=== PATIENT | female | born 1955 | race Caucasian/White ===

== ENCOUNTER 2022-04-26 13:38 | Outpatient (CLI) | payer MEDICARE, SELFPAY ==
--- NOTE | ~2022-04-26 | MR_ITS ---
EXAMINATION: MR lumbar spine wo con DATE: 04/26/2022 14:35 INDICATION: Chronic low back pain. Bilateral leg pain and numbness. TECHNIQUE: Magnetic resonance imaging (MRI) of the lumbar spine was performed without intravenous con trast. Sequences included sagittal T2-weighted FSE, sagittal T2-weighted FS FSE, sagittal T1-weighted FSE, and axial T2-weighted FSE. COMPARISON: Lumbar spine radiographs 07/01/2012 FINDINGS: There is 23 degrees dextroscoliosis of lumbar spine. There is mild chronic anterior wedging of T11 and T12 vertebral bodies. There is 3 mm retrolisthesis of L1 on L2, L2 on L3, and L3 on L4. T here is moderately decreased disc height at T12-L1. There is severely decreased disc height from L1-L 2 through L5-S1 with endplate remodeling. The distal spinal cord signal intensity is normal. The conu s medullaris is at L1-L2. The following disc levels are specifically discussed: L1-L2: The disc is bulging. There is moderate right and severe left facet joint osteoarthritis. There is mild right and moderate left neural foraminal stenosis. There is mild central canal stenosis. L2-L3: The disc is bulging. There is severe right and moderate left facet joint osteoarthritis. There is mild right and moderate left neural foraminal stenosis. There is mild central canal stenosis. L3-L4: The disc is bulging and has an annular fissure. There is severe bilateral facet joint osteoart hritis. There is mild right and moderate left neural foraminal stenosis. There is mild central canal stenosis. L4-L5: The disc is bulging and has an annular fissure. There is severe bilateral facet joint osteoart hritis. There is moderate bilateral neural foraminal stenosis. There is mild central canal stenosis. L5-S1: The disc is bulging and has an annular fissure. There is severe bilateral facet joint osteoart hritis. There is moderate right and mild left neural foraminal stenosis. There is mild central canal stenosis. IMPRESSION: 1. Severe lumbar spondylosis. 2. Lumbar dextroscoliosis. Reviewed, dictated and finalized at location A.
== END 2022-04-26 13:39 | disposition home or self-care (01) ==
PROVIDERS: PCP Internal Medicine; Visit Provider Nurse Practitioner
DX: M47.896 Other spondylosis, lumbar region (principal)
CPT/HCPCS: 72148

== ENCOUNTER 2022-06-05 09:41 | Outpatient (CLI) | payer MEDICARE, SELFPAY ==
--- NOTE | 2022-06-05 11:00 | NEURO_ITS ---
Impression: # Complains of low back and leg pain. # Normal motor and sensory nerve conduction study including F-waves. # Normal needle/EMG exam. # Clinical correlation recommended. Nerve Conduction Studies Anti Sensory Summary Table Stim Site NR Peak (ms) P-T Amp (?V) Site1 Site2 Delta-P (ms) Dist (cm) Jayson (m/s) Left Sup Fibular Anti Sensory (Ant Lat Mall) 14 cm 3.2 5.2 14 cm Ant Lat Mall 3.2 16.0 50 Right Sup Fibular Anti Sensory (Ant Lat Mall) 14 cm 3.2 7.3 14 cm Ant Lat Mall 3.2 16.0 50 Left Sural Anti Sensory (Lat Mall) Calf 3.3 11.3 Calf Lat Mall 3.3 16.0 48 Right Sural Anti Sensory (Lat Mall) Calf 3.8 8.4 Calf Lat Mall 3.8 16.0 42 Motor Summary Table Stim Site NR Onset (ms) O-P Amp (mV) Site1 Site2 Delta-0 (ms) Dist (cm) Jayson (m/s) Left Peroneal Motor (Vastus Med) Ankle 4.0 1.8 Popit Ankle 6.5 29.0 45 Popit 10.5 1.8 Right Peroneal Motor (Vastus Med) Ankle 3.8 2.8 Popit Ankle 7.8 37.0 47 Popit 11.6 2.5 Left Tibial Motor (Abd Duncan Brev) Ankle 4.5 3.1 Knee Ankle 8.5 42.0 49 Knee 13.0 1.8 Right Tibial Motor (Abd Duncan Brev) Ankle 4.2 2.6 Knee Ankle 8.7 41.0 47 Knee 12.9 2.4 F Wave Studies NR F-Lat (ms) L-R F-Lat (ms) Left Peroneal (Mrkrs) (EDB) 53.40 0.28 Right Peroneal (Mrkrs) (EDB) 53.13 0.28 Left Tibial (Mrkrs) (Abd Hallucis) 54.57 0.12 Right Tibial (Mrkrs) (Abd Hallucis) 54.70 0.12 EMG Side Muscle Nerve Root Ins Act Fibs Amp Dur Recrt Comment Right AntTibialis Dp Br Fibular L4-5 Nml Nml Nml Nml Nml Right Gastroc Tibial S1-2 Nml Nml Nml Nml Nml Right Fibularis Long Sup Br Fibular L5-S1 Nml Nml Nml Nml Nml Right Flex Dig Long Tibial L5-S2 Nml Nml Nml Nml Nml Right Ext Dig Brev Dp Br Fibular L5, S1 Nml Nml Nml Nml Nml Left AntTibialis Dp Br Fibular L4-5 Nml Nml Nml Nml Nml Left Gastroc Tibial S1-2 Nml Nml Nml Nml Nml Left Fibularis Long Sup Br Fibular L5-S1 Nml Nml Nml Nml Nml Left Flex Dig Long Tibial L5-S2 Nml Nml Nml Nml Nml Left Ext Dig Brev Dp Br Fibular L5, S1 Nml Nml Nml Nml Nml MTDD
== END 2022-06-05 09:42 | disposition home or self-care (01) ==
LOC: ANHNEURO 09:44
PROVIDERS: PCP Internal Medicine; Visit Provider Nurse Practitioner
DX: M54.50 Low back pain, unspecified (principal)
CPT/HCPCS: 95886; 95910

== ENCOUNTER 2022-06-08 07:46 | Outpatient (CLI) | payer MEDICARE, SELFPAY ==
--- NOTE | ~2022-06-08 | MM_ITS ---
EXAMINATION: MM screening [facility] BI w ryan HISTORY: Screening mammogram TECHNIQUE: Craniocaudal and mediolateral oblique 3-D tomosynthesis images were obtained and synthetic 2-D images were generated. CAD analysis was submitted and interpreted. COMPARISON: 10/02/2018, 12/11/2011 BREAST PARENCHYMAL COMPOSITION: There are scattered areas of fibroglandular density. FINDINGS: There is no suspicious mass, calcification, or architectural distortion to suggest malignan cy in either breast. There has been no suspicious interval change. IMPRESSION: 1. No mammographic evidence of malignancy. 2. Recommend routine screening mammography in one year. BI-RADS Category 1: Negative Reviewed, dictated and finalized at location A.
== END 2022-06-08 07:47 | disposition home or self-care (01) ==
LOC: ANHIMG 07:48
PROVIDERS: PCP Internal Medicine; Visit Provider Nurse Practitioner
DX: Z12.31 Encounter for screening mammogram for malignant neoplasm of breast (principal)
CPT/HCPCS: 77063; 77067

== ENCOUNTER 2023-08-30 08:37 | Outpatient (CLI) | payer MEDICARE, SELFPAY ==
[2023-08-30 09:28] LABS: Hematocrit 46.6 % (37.0-47.0); Hemoglobin 15.1 g/dL (12.0-15.0); Mean Corpuscular HGB Conc 32.4 g/dl (32-36); Mean Corpuscular Hemoglobin 31.1 pg (26-34); Mean Corpuscular Volume 96.1 fl (80-100); Mean Platelet Volume 11.2 fl (7.4-10.4); Platelet Count Result 252 k/mm3 (150-375); Red Blood Count 4.85 M/mm3 (4.2-5.4); Red Cell Distribution Width 12.4 % (11.5-14.5); White Blood Count 9.7 K/mm3 (4.5-10.0)
[2023-08-30 09:40] LABS: Alanine Aminotransferase 42 U/L (6-35); Albumin Level 4.7 g/dL (3.5-5.1); Alkaline Phosphatase 80 U/L (38-126); Anion Gap 8 mmol/L (8-16); Aspartate Amino Transferase 32 U/L (14-36); Bilirubin,Total 0.6 mg/dL (0.2-1.3); Blood Urea Nitrogen 27 mg/dL (7-17); Calcium 9.5 mg/dL (8.4-10.2); Carbon Dioxide 27 mmol/L (22-30); Chloride 105 mmol/L (98-107); Cholesterol 170 mg/dL (0-200); Estimated Glomerular Filt Rate > 60; Glucose 95 mg/dL (65-110); HDL Direct 57 mg/dL; Potassium 4.1 mmol/L (3.4-5.0); Sodium 140 mmol/L (137-145); Triglycerides 145 mg/dL (<150)
[2023-08-30 09:49] LABS: Hemoglobin A1C 6.1 % (<5.7)
[2023-08-30 09:50] LABS: LDL Cholesterol Direct 81 mg/dL
== END 2023-08-30 08:38 | disposition home or self-care (01) ==
PROVIDERS: PCP Internal Medicine; Visit Provider Nurse Practitioner
DX: I10 Essential (primary) hypertension (principal); R73.03 Prediabetes; E78.5 Hyperlipidemia, unspecified; Z13.29 Encounter for screening for other suspected endocrine disorder
CPT/HCPCS: 36415; 80053; 80061; 83036; 84443; 85027

== ENCOUNTER 2024-07-02 07:00 | Outpatient (NON) | payer MEDICARE, SELFPAY | END 2024-07-02 07:01 | disposition home or self-care (01) | LOC: ANHLAB 07-03 10:31 | PROVIDERS: PCP Internal Medicine; Visit Provider Internal Medicine Gastroenterology | DX: Z12.11 Encounter for screening for malignant neoplasm of colon (principal); Z80.0 Family history of malignant neoplasm of digestive organs | CPT/HCPCS: 88305 ==

== ENCOUNTER 2024-07-02 08:30 | Day surgery (SDC) | payer MEDICARE, SELFPAY ==
[2024-05-27 11:52] VITALS: BMI 36.3
--- NOTE | 2024-07-02 06:57 | WPDANESEPPF ---
Anes - Initial Pre Proc Eval Procedure: Operation Date: 07/02/24 10:45 Proposed Procedures p Diagnostic Colonoscopy - Shakir Lopez MD Date/Time: 07/02/24 06:57 Surgeon: Shakir Lopez MD Pre Op Diagnosis: Family History of Colon polyps Patient Data Age: 68 Gender: F Height: 1.68 m Weight: 91 kg Allergies Allergy/AdvReac Type Severity Reaction Status Date / Time povidone-iodine Allergy Mild Rash Verified 07/02/24 09:42 Penicillins Allergy Unknown Anaphylaxis Verified 07/02/24 09:42 povidone Allergy Unknown Rash Verified 07/02/24 09:42 lidocaine Allergy Blister Verified 07/02/24 09:42 tetracycline Allergy Rash Verified 07/02/24 09:42 Home Medications Medication Instructions Recorded Confirmed Type bumetanide 2 mg tablet 2 mg PO BID PRN intermittent 05/21/24 07/02/24 Rx swelling #90 tabs celecoxib 200 mg capsule 200 mg PO BID #180 caps 05/21/24 07/02/24 Rx lansoprazole 30 mg capsule,delayed See Rx Instructions .Route 05/21/24 07/02/24 Rx release .COMPLEX #80 caps losartan 50 mg tablet See Rx Instructions .Route 05/21/24 07/02/24 Rx .COMPLEX #100 tabs potassium chloride 20 mEq 20 meq PO DAILY #90 tabs 05/21/24 07/02/24 Rx tablet,extended release tramadol 50 mg tablet 50 mg PO Q8H PRN pain #90 tabs 05/21/24 07/02/24 Rx triamterene 75 See Rx Instructions .Route 05/21/24 07/02/24 Rx mg-hydrochlorothiazide 50 mg tablet .COMPLEX #100 tabs sodium,potassium,mag sulfates 17.5 See Rx Instructions PO .COMPLEX 05/27/24 07/02/24 Rx gram-3.13 gram-1.6 gram oral soln #354 mL (Suprep Bowel Prep Kit) Patient hx anesthesia problems: none Family hx anesthesia problems: none Results Review: All pre-operative results and documents have been reviewed as part of the pre-operative evaluation. [facility]LY [facility] Past Medical History Medical History Chronic bilateral low back pain without sciatica Chronic GERD Complex tear of medial meniscus of right knee as current injury COVID-19 Essential (primary) hypertension FHx: colon cancer Migraine, unspecified, not intractable, without status migrainosus Prediabetes Surgical History Surgical History H/O meniscectomy of right knee H/O rotator cuff tear Family History Family History Sibling Carcinoma of colon Social History Social History Smoking status: Never smoker Alcohol intake: never Substance use: never Substance use type: does not use Lack of Transportation: No Lack of Food: Never True Current Housing: I Have Housing Concerned About Future Housing: No Difficulty Paying Gas/Electric Bills: No Difficulty Paying for Meds: No Currently Unemployed: No Education: Trade/Vocational Certificate Difficulty w/ Childcare or Family Care: No Living arrangements: with family Occupation/Education: occupation Additional occupation/education comments: 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[place], [place] Gender identity (if verbalized by the patient): Female Sexual Orientation (if Verbalized by the Patient): Straight or Heterosexual Anes - Eval Final PreProcedure Day of Procedure 07/02/24 06:57 Patient weight: obese Heart: regular rate and rhythm Lungs: clear to auscultation Airway: Mallampati scale class II Neurological: alert and oriented Last oral intake: >/= 8 hours ASA classification: III Emergent: no Anesthetic plan: proceed Anesthesia type and monitoring: general GIVS and standard monitoring Results Review: All pre-operative results and documents have been reviewed as part of the pre-operative evaluation. Informed Consent: The patient's anesthetic plan and its attendant risks and benefits were discussed with the patient/family/POA. Questions were solicited and answers provided to the satisfaction of the mindi
[2024-07-02] MEDS: LACTATED RINGERS 1,000 ML 150 ML IV CONT (09:29)
[2024-07-02 09:39] VITALS: BP 131/62; PULSE 52; RESP 18; TEMP 37.2; O2SAT 99
--- NOTE | 2024-07-02 10:13 | PM.HPGS ---
History of Present Illness History of Present Illness Consent: Risks, benefits, and alternatives have been discussed and questions answered. Patient agrees to proceed with procedure. Chief complaint: Family History of Colon polyps Narrative: Ml De La Rosa is a 68 year old female for colonoscopy. Patient reports her current weight appetite and bowel movements are normal. Patient denies abdominal pain. She has had no bleeding. Family history is significant that her sister has had colon polyps. Her grandfather had colon cancer. Her brother had appendiceal cancer. Review of Systems Review of Systems: All systems reviewed & are unremarkable except as noted in HPI and below PMFSH Past Medical History Medical History Chronic bilateral low back pain without sciatica Chronic GERD Complex tear of medial meniscus of right knee as current injury COVID-19 Essential (primary) hypertension FHx: colon cancer Migraine, unspecified, not intractable, without status migrainosus Prediabetes Surgical History Surgical History H/O meniscectomy of right knee H/O rotator cuff tear Family History Family History Sibling Carcinoma of colon Social History Social History Smoking status: Never smoker Alcohol intake: never Substance use: never Substance use type: does not use Lack of Transportation: No Lack of Food: Never True Current Housing: I Have Housing Concerned About Future Housing: No Difficulty Paying Gas/Electric Bills: No Difficulty Paying for Meds: No Currently Unemployed: No Education: Trade/Vocational Certificate Difficulty w/ Childcare or Family Care: No Living arrangements: with family Occupation/Education: occupation Additional occupation/education comments: 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[place], [place] Gender identity (if verbalized by the patient): Female Sexual Orientation (if Verbalized by the Patient): Straight or Heterosexual Meds Home Medications and Allergies Home Medications Medication Instructions Recorded Confirmed Type bumetanide 2 mg tablet 2 mg PO BID PRN intermittent 05/21/24 07/02/24 Rx swelling #90 tabs celecoxib 200 mg capsule 200 mg PO BID #180 caps 05/21/24 07/02/24 Rx lansoprazole 30 mg capsule,delayed See Rx Instructions .Route 05/21/24 07/02/24 Rx release .COMPLEX #80 caps losartan 50 mg tablet See Rx Instructions .Route 05/21/24 07/02/24 Rx .COMPLEX #100 tabs potassium chloride 20 mEq 20 meq PO DAILY #90 tabs 05/21/24 07/02/24 Rx tablet,extended release tramadol 50 mg tablet 50 mg PO Q8H PRN pain #90 tabs 05/21/24 07/02/24 Rx triamterene 75 See Rx Instructions .Route 05/21/24 07/02/24 Rx mg-hydrochlorothiazide 50 mg tablet .COMPLEX #100 tabs sodium,potassium,mag sulfates 17.5 See Rx Instructions PO .COMPLEX 05/27/24 07/02/24 Rx gram-3.13 gram-1.6 gram oral soln #354 mL (Suprep Bowel Prep Kit) Allergies Allergy/AdvReac Type Severity Reaction Status Date / Time povidone-iodine Allergy Mild Rash Verified 07/02/24 09:42 Penicillins Allergy Unknown Anaphylaxis Verified 07/02/24 09:42 povidone Allergy Unknown Rash Verified 07/02/24 09:42 lidocaine Allergy Blister Verified 07/02/24 09:42 tetracycline Allergy Rash Verified 07/02/24 09:42 Vital Signs Vital Signs - 24 hr 07/02/24 09:39 Temperature 99.0 F Pulse Rate 52 L Respiratory Rate 18 Blood Pressure 131/62 Pulse Oximetry 99 Oxygen Delivery Room Air Exam Narrative: Physical exam reveals patient to be alert. Vital signs stable. HEENT exam is unremarkable. Patient is anicteric. Lungs are clear to auscultation and to percussion this without murmur or extra sounds. Abdomen bowel sounds are present soft nontender with no hepatosplenomegaly. Digital
[2024-07-02 11:23] VITALS: BP 120/54; PULSE 64; RESP 16; O2SAT 96
[2024-07-02 11:33] VITALS: BP 120/49; PULSE 53; RESP 16; O2SAT 95
[2024-07-02 11:43] VITALS: BP 137/62; PULSE 52; RESP 16; O2SAT 96
--- NOTE | 2024-07-02 12:44 | WPDANESPN ---
Anes - Prog Note Post-Op Date/Time: 07/02/24 12:44 Cardiovascular status: normal Respiratory status: normal Airway patency: baseline Mental status: baseline Post-Op hydration status: normal Vital Signs: Last Vital Signs Temp 37.2 C 07/02/24 09:39 Pulse 52 L 07/02/24 11:43 Resp 16 07/02/24 11:43 BP 137/62 07/02/24 11:43 Pulse Ox 96 07/02/24 11:43 O2 Del Method Room Air 07/02/24 11:43 Pain Score (VAS): 0 I/O: Intake & Output 07/01/24 07/02/24 07/02/24 23:59 07:59 15:59 Intake Total 400 Balance 400 Post-procedural complaints: none Patient Feedback: Patient satisfied with anesthetic care. Other Findings: Patient vital signs back to baseline. Patient denies nausea and vomiting. Patient's pain under control. Patient OK for discharge.
== END 2024-07-02 12:10 | disposition home or self-care (01) ==
PROVIDERS: PCP Internal Medicine; Visit Provider Internal Medicine Gastroenterology
PROC: 0DJD8ZZ Inspection of Lower Intestinal Tract, Via Natural or Artificial Opening Endoscopic (ICD-10-PCS; CPT 45378; principal; 2024-07-02 10:45)
DX: Z83.718 Family history of other colon polyps (principal); D12.2 Benign neoplasm of ascending colon; D12.5 Benign neoplasm of sigmoid colon; K57.30 Diverticulosis of large intestine without perforation or abscess without bleeding; K64.8 Other hemorrhoids
CPT/HCPCS: 45385

== ENCOUNTER 2024-07-02 11:49 | Outpatient (CLI) | payer MEDICARE, SELFPAY ==
[2024-07-02 19:33] LABS: Alanine Aminotransferase 70 U/L (6-35); Albumin Level 4.3 g/dL (3.5-5.1); Alkaline Phosphatase 68 U/L (38-126); Anion Gap 9 mmol/L (4-12); Aspartate Amino Transferase 101 U/L (14-36); Bilirubin,Total 0.7 mg/dL (0.2-1.3); Blood Urea Nitrogen 25 mg/dL (7-17); Carbon Dioxide 28 mmol/L (22-30); Chloride 104 mmol/L (98-107); Cholesterol 151 mg/dL (0-200); Estimated Glomerular Filt Rate > 60; Glucose 94 mg/dL (65-110); HDL Direct 45 mg/dL; Potassium 3.7 mmol/L (3.4-5.0); Sodium 141 mmol/L (137-145); Triglycerides 180 mg/dL (<150)
[2024-07-02 19:44] LABS: LDL Cholesterol Direct 62 mg/dL
[2024-07-02 20:00] LABS: Thyroid Stimulating Hormone 0.498 uIU/mL (0.465-4.680)
[2024-07-02 20:05] LABS: Hemoglobin A1C 6.6 % (<5.7)
[2024-07-02 20:24] LABS: Free T4 Free Thyroxine 1.27 ng/mL (0.78-2.19)
== END 2024-07-02 11:50 | disposition home or self-care (01) ==
PROVIDERS: PCP Internal Medicine; Visit Provider Nurse Practitioner
DX: E78.5 Hyperlipidemia, unspecified (principal); R73.03 Prediabetes; I10 Essential (primary) hypertension; Z13.29 Encounter for screening for other suspected endocrine disorder
CPT/HCPCS: 36415; 80053; 80061; 83036; 84439; 84443